=== PATIENT | female | born 1955 | race Caucasian/White ===

== ENCOUNTER 2021-04-08 06:45 | Emergency (ER) | payer OTHER ==
[2021-04-08 07:13] VITALS: BMI 26.5
[2021-04-08] MEDS ORDERED: SODIUM CHLORIDE 1,000 ML IV ONE (08:26)
[2021-04-08] MEDS ORDERED: ACETAMINOPHEN 325 MG TABLET (FP) PO ONE (08:26)
[2021-04-08] MEDS ORDERED: ACETAMINOPHEN 325 MG TABLET (FP) ONE (09:05)
[2021-04-08 09:08] LABS: EPITHELIAL CELLS FEW /hpf
[2021-04-08 09:12] LABS: ALBUMIN 4.3 g/dl (3.4-5.0); ALK PHOS 84 U/L (45-117); ANION GAP 12 MMOL/L (8-16); CALCIUM 9.6 mg/dl (8.5-10); CHLORIDE 101 mmol/L (98-107); CO2 26 mmol/L (21-32); CREATININE 0.7 mg/dl (0.55-1.3); GLUCOSE,RANDOM 117 mg/dl (74-106); SGOT/AST 29 U/L (15-37); SGPT/ALT 31 U/L (13-61); SODIUM 139 mmol/L (136-145); TOT PROT 7.3 g/dl (6.4-8.2)
[2021-04-08 09:44] LABS: LIPASE 120 U/L (73-393)
[2021-04-08 09:51] LABS: BASO % 0.2 % (0-2.0); EOS % 0.1 % (0-4.5); HEMOGLOBIN 14.7 GM/dL (10.7-15.3); LYMPH % 8.9 % (8-40); MCH 29.9 pg (25.7-33.7); MCHC 33.5 g/dl (32.0-36.0); MEAN CELL VOLUME 89.4 fl (80-96); MEAN PLT VOLUME 8.3 fl (7.5-11.1); MONO % 9.6 % (3.8-10.2); NEUT % 81.2 % (42.8-82.8); PLATELET COUNT 288 10^3/uL (134-434); RBC 4.92 M/mm3 (3.60-5.2); RDW 14.3 % (11.6-15.6); WHITE BLOOD COUNT 12.2 K/mm3 (4.0-10.0)
[2021-04-08] MEDS ORDERED: IBUPROFEN 400 MG TABLET (FP) PO ONE ×2 (10:35→11:08)
[2021-04-08 15:33] VITALS: BP 129/77; PULSE 87; TEMP 98.4
[2021-04-09 21:06] LABS: SARS-CoV-2 NAA Not Detected (Not Detected)
== END 2021-04-08 15:26 | disposition home or self-care (01) ==
LOC: FER 06:45
PROC: 3E03329 Introduction of Other Anti-infective into Peripheral Vein, Percutaneous Approach (ICD-10-PCS; principal; 2021-04-08)
PROC: 3E03329 Introduction of Other Anti-infective into Peripheral Vein, Percutaneous Approach (ICD-10-PCS; 2021-04-08)
PROC: 3E0337Z Introduction of Electrolytic and Water Balance Substance into Peripheral Vein, Percutaneous Approach (ICD-10-PCS; 2021-04-08)
DX: K57.32 Diverticulitis of large intestine without perforation or abscess without bleeding (principal)
CPT/HCPCS: 36415; 71275-TC; 74174-TC; 80053; 81003; 81015; 83690; 84484; 85025; 87086; 93005; 99284-25; C9803; Q9967; U0003; U0005